=== PATIENT | female | born 1955 | race Caucasian/White ===

== ENCOUNTER 2017-08-07 02:46 | Emergency (ER) | payer OTHER, BC ==
[2017-08-07] MEDS ORDERED: SODIUM CHLORIDE 1,000 ML IV STA (03:59)
--- NOTE | 2017-08-07 03:59 | PDOC ---
History of Present Illness - General Chief Complaint: Back Pain Stated Complaint: LOW BACK PAIN.VOMITING Time Seen by Provider: 08/07/17 03:53 - History of Present Illness Initial Comments: 08/07/17 04:08 The patient is a 61 year old female with a history of diverticulosis who presents for evaluation of left flank pain. The patient reports a week and a half history of sharp left sided flank pain with radiation into her left abdomen. She reports worsening symptoms with her being unable to get comfortable tonight prompting her presentation to the ED for further evaluation. She also endorses some burning lower abdominal pain, but otherwise denies fevers, chills, SOB, chest pain, or changes with bowel movements. She notes an episode of vomiting two days ago as well as some blood in her urine. Past History - Past Medical History Allergies/Adverse Reactions: Allergies Allergy/AdvReac Type Severity Reaction Status Date / Time aspirin AdvReac Verified 10/07/15 17:02 Home Medications: Ambulatory Orders Zolpidem Tartrate [Zolpidem Tartrate ER] 12.5 mg PO HS 07/29/15 Pantoprazole Sodium [Protonix -] 40 mg PO DAILY #30 tablet.ec 10/08/15 Methocarbamol [Robaxin -] 500 mg PO BID #14 tablet 08/07/17 Anemia: No Asthma: No Cancer: No CVA: No COPD: Yes Diabetes: No GI Disorders: Yes (DIVERTICULOSIS, COLITIS) HTN: No Seizures: No Thyroid Disease: No - Surgical History Abdominal Surgery: Yes (tummy tuck) - Suicide/Smoking/Psychosocial Hx Smoking Status: Yes Smoking History: Current every day smoker Have you smoked in the past 12 months: No Number of Cigarettes Smoked Daily: 15 Hx Alcohol Use: No Drug/Substance Use Hx: No Substance Use Type: None Review of Systems - Review of Systems Comments:: 08/07/17 04:10 Constitutional: No fevers, chills, fatigue, malaise HEENT: No Rhinorrhea, nasal congestion, visual changes Cardiovascular: No chest pain, syncope, palpitations, lightheadedness Respiratory: No Cough, SOB, Hemoptysis, Gastrointestinal: Lower abdominal pain, nausea, vomiting. No Constipation, Diarrhea, Melena Genitourinary: Hematuria, Flank pain No Dysuria, Frequency, Urgency, Hesitancy, Musculoskeletal: No Myalgia, arthralgia Skin: No rashes, itching, bruising, pallor Neurologic: No Headache, Dizziness, Numbness, Weakness, or Tingling Psychiatric: No Hallucinations. No SI or HI *Physical Exam - Physical Exam Comments: 08/07/17 04:12 General Appearance: Nourished. In Mild Apparent Distress HEENT: EOMI, PATRIC. No Pharyngeal Erythema, Tonsillar Exudate, Tonsillar Erythema Neck: No Cervical Lymphadenopathy Respiratory/Chest: Lungs Clear, Normal Breath Sounds. No Crackles, Rales, Rhonchi, Wheezing Cardiovascular: Regular Rhythm, Regular Rate. No Murmur, Gallops, Rubs Gastrointestinal/Abdominal: Normal Bowel Sounds, Soft. Mild suprapubic tenderness to palpation on exam. No Guarding, Rebound, Musculoskeletal: No CVA Tenderness Extremity: Normal Capillary Refill Integumentary: Normal Color, Dry, Warm Neurologic: Fully Oriented, Alert, Normal Mood/Affect, Normal Response, ED Treatment Course - LABORATORY CBC & Chemistry Diagram: 08/07/17 04:23 08/07/17 04:23 Medical Decision Making - Medical Decision Making 08/07/17 04:13 The patient is a 61 year old female with a history of diverticulosis who presents for evaluation of left flank pain. Differential includes but is not limited to: UTI, Kidney Stone, Pyelonephritis, infectious, metabolic derangement. Given the patient's history and physical exam, we will obtain a cbc, cmp, lipase, ua, urine culture and renal CT to evaluate further for possible etiologies. We will treat in the meantime with iv fluids and morphine and continue to monitor and reassess while here in the ED. 08/07/17 06:38 CBC, cmp, lipase, ua are unremarkable. Renal CT is unremarkable as preliminarily read by our industrial automation engineer radiologist. The patient's symptoms are likely musculoskeletal in nature. We will treat the patient with robaxin and are comfortable discharging the patient home at this time. We discussed the results, plan, and strict return precautions with the patient who voiced understanding and is agreeable with the plan. *DC/Admit/Observation/Transfer Diagnosis at time of Disposition: Flank pain - Discharge Dispostion Disposition: HOME Condition at time of disposition: Stable Decision to Admit order: No - Prescriptions Prescriptions: Methocarbamol [Robaxin -] 500 mg PO BID #14 tablet - Referrals - Patient Instructions Printed Discharge Instructions: DI for Flank Pain Additional Instructions: Please return to the ER if you experience any concerning or worsening symptoms including worsening pain, fevers, or vomiting. Your lab results were normal here. Your CT scan was normal here in the ER. We have sent a prescription to your pharmacy for muscle relaxant that you should take as directed. It is important that you call your primary care provider within 2-3 days to discuss your ER visit and further management of your symptoms. - Post Discharge Activity
[2017-08-07] MEDS ORDERED: morphine CARPU-JECT 2 MG/1 ML DISP.SYRIN IVPUSH ONE ×2 (04:05→04:45)
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
[2017-08-07 04:12] VITALS: TEMP 97.7; BMI 32.8
[2017-08-07 04:33] LABS: BASO % 0.1 % (0-2.0); HEMOGLOBIN 14.5 GM/dL (10.7-15.3); MCH 31.4 pg (25.7-33.7); MCHC 33.8 g/dl (32.0-36.0); MEAN PLT VOLUME 8.1 fl (7.5-11.1); MONO % 5.6 % (3.8-10.2); NEUT % 55.3 % (42.8-82.8); PLATELET COUNT 248 K/MM3 (134-434); RBC 4.62 M/mm3 (3.60-5.2); RDW 14.3 % (11.6-15.6)
[2017-08-07 04:41] LABS: URINE APPEARANCE CLEAR; URINE BILIRUBIN NEGATIVE (<2.0 mg/dL); URINE COLOR YELLOW; URINE GLUCOSE (UA) NEGATIVE (NEGATIVE); URINE KETONE TRACE (NEGATIVE); URINE NITRITE NEGATIVE (NEGATIVE); URINE PROTEIN NEGATIVE (NEGATIVE); URINE UROBILINOGEN NEGATIVE mg/dL (0.2-1.0)
[2017-08-07] MEDS ORDERED: morphine SULFATE 4 MG/ML VIAL ONE (04:44)
[2017-08-07 05:00] LABS: ALBUMIN 3.5 g/dl (3.4-5.0); ANION GAP 7 (8-16); BLOOD UREA NITROGEN 23 mg/dL (7-18); CALCIUM 8.6 mg/dL (8.5-10.1); CHLORIDE 106 mmol/L (98-107); CO2 27 mmol/L (21-32); CREATININE 0.8 mg/dL (0.55-1.02); GLUCOSE,RANDOM 90 mg/dL (74-106); LIPASE 123 U/L (73-393); SGPT/ALT 28 U/L (12-78); SODIUM 140 mmol/L (136-145)
[2017-08-07 05:02] LABS: ALK PHOS 106 U/L (45-117); BILIRUBIN,TOTAL 0.4 mg/dL (0.2-1.0); TOT PROT 6.8 g/dl (6.4-8.2)
[2017-08-07 05:03] LABS: POTASSIUM 4.2 mmol/L (3.5-5.1); SGOT/AST 29 U/L (15-37)
[2017-08-07 05:29] LABS: URINE LEUK ESTERASE 1+ (NEGATIVE)
[2017-08-07] MEDS ORDERED: METHOCARBAMOL 500 MG TABLET PO ONE (06:21)
[2017-08-07 06:33] VITALS: BP 120/66; PULSE 70
[2017-08-07 06:33] LABS: EPI CELLS RARE /HPF (FEW); URINE MUCUS RARE
[2017-08-07] MEDS ORDERED: METHOCARBAMOL 500 MG TABLET ONE (06:48)
== END 2017-08-07 07:04 | disposition home or self-care (01) ==
LOC: JER 02:46
PROC: 3E0337Z Introduction of Electrolytic and Water Balance Substance into Peripheral Vein, Percutaneous Approach (ICD-10-PCS; principal; 2017-08-07)
PROC: 3E033NZ Introduction of Analgesics, Hypnotics, Sedatives into Peripheral Vein, Percutaneous Approach (ICD-10-PCS; 2017-08-07)
DX: R10.32 Left lower quadrant pain (principal); Z87.19 Personal history of other diseases of the digestive system; J44.9 Chronic obstructive pulmonary disease, unspecified; F17.210 Nicotine dependence, cigarettes, uncomplicated
CPT/HCPCS: 36415; 74176; 80053; 81003; 81015; 83690; 85025; 87086; 99282-25; J7030

== ENCOUNTER 2017-08-17 17:21 | Emergency (ER) | payer BC, OTHER ==
[2017-08-17 17:26] VITALS: BP 133/84; PULSE 89; TEMP 98.2; BMI 30.5
--- NOTE | 2017-08-17 17:34 | PDOC ---
Rapid Medical Evaluation Chief Complaint: Back Pain Time Seen by Provider: 08/17/17 17:23 Medical Evaluation: Allergies Allergy/AdvReac Type Severity Reaction Status Date / Time aspirin AdvReac Verified 10/07/15 17:02 Vital Signs Temp Pulse Resp BP Pulse Ox 98.2 F 89 18 133/84 97 08/17/17 17:23 08/17/17 17:23 08/17/17 17:23 08/17/17 17:23 08/17/17 17:23 08/17/17 17:33 I have performed a brief in-person evaluation of this patient. The patient presents with a chief complaint of: Severe LBP. Seen in ED 08/07 for same w/ neg labs and CT Pertinent physical exam findings:appears uncomfortable but stable I have ordered the following:nothing The patient will proceed to the ED for further evaluation. Discharge Disposition - Diagnosis Back pain Qualifiers: Back pain location: low back pain Chronicity: unspecified Back pain laterality : unspecified Sciatica presence: without sciatica Qualified Code(s): M54.5 - Low back pain - Discharge Dispostion Last Admission D/C Date: 10/08/15 - Referrals Referrals: Ramiro Garcia MD [Primary Care Provider] - - Patient Instructions - Post Discharge Activity
== END 2017-08-17 18:50 | disposition left against medical advice (07) ==
LOC: JERFT 17:21
DX: M54.5 Low back pain (principal)
CPT/HCPCS: 99281-25

== ENCOUNTER 2017-10-06 16:37 | Emergency (ER) | payer BC, OTHER ==
[2017-10-06 16:44] VITALS: BP 156/93; PULSE 82; TEMP 97.9
[2017-10-06] MEDS ORDERED: ONDANSETRON 4 MG/2 ML VIAL IVPUSH ONE (17:18)
[2017-10-06] MEDS ORDERED: FAMOTIDINE 20 MG/50 ML IVPB 20 MG/50 ML MG IVPB ONE ×2 (17:18→17:39)
[2017-10-06] MEDS ORDERED: MAG HYDROX/AL HYDROX/SIMETH 30 ML UNIT-DOSE CUP PO ONE (17:18)
[2017-10-06] MEDS ORDERED: SODIUM CHLORIDE 1,000 ML IV STA (17:19)
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
[2017-10-06] MEDS ORDERED: ONDANSETRON 4 MG/2 ML VIAL ONE (17:38)
[2017-10-06] MEDS ORDERED: MAG HYDROX/AL HYDROX/SIMETH 30 ML UNIT-DOSE CUP ONE (17:38)
[2017-10-06 17:54] LABS: BASO % 0.2 % (0-2.0); HEMATOCRIT 43.5 % (32.4-45.2); HEMOGLOBIN 14.6 GM/dL (10.7-15.3); LYMPH % 10.1 % (8-40); MCH 30.9 pg (25.7-33.7); MCHC 33.6 g/dl (32.0-36.0); MEAN CELL VOLUME 91.8 fl (80-96); MEAN PLT VOLUME 8.1 fl (7.5-11.1); MONO % 1.3 % (3.8-10.2); NEUT % 88.4 % (42.8-82.8); PLATELET COUNT 263 K/MM3 (134-434); RBC 4.74 M/mm3 (3.60-5.2); RDW 13.6 % (11.6-15.6)
[2017-10-06 18:37] LABS: ANION GAP 8 (8-16); BILIRUBIN,TOTAL 0.5 mg/dL (0.2-1.0); BLOOD UREA NITROGEN 18 mg/dL (7-18); CALCIUM 9.5 mg/dL (8.5-10.1); CHLORIDE 107 mmol/L (98-107); CO2 26 mmol/L (21-32); CREATININE 0.7 mg/dL (0.55-1.02); GLUCOSE,RANDOM 117 mg/dL (74-106); LIPASE 92 U/L (73-393); SGOT/AST 23 U/L (15-37); SGPT/ALT 39 U/L (12-78); SODIUM 141 mmol/L (136-145); TOT PROT 7.3 g/dl (6.4-8.2)
[2017-10-06 18:39] LABS: ALK PHOS 103 U/L (45-117)
[2017-10-06] MEDS ORDERED: morphine CARPU-JECT 4 MG/1 ML DISP.SYRIN IVPUSH ONE (18:42)
[2017-10-06] MEDS ORDERED: morphine SULFATE 4 MG/ML VIAL ONE (18:54)
[2017-10-06 19:05] LABS: URINE APPEARANCE CLOUDY; URINE BILIRUBIN NEGATIVE (<2.0 mg/dL); URINE COLOR YELLOW; URINE GLUCOSE (UA) NEGATIVE (NEGATIVE); URINE KETONE NEGATIVE (NEGATIVE); URINE LEUK ESTERASE 2+ (NEGATIVE); URINE NITRITE NEGATIVE (NEGATIVE); URINE PROTEIN 1+ (NEGATIVE); URINE UROBILINOGEN NEGATIVE mg/dL (0.2-1.0)
[2017-10-06 19:08] LABS: EPI CELLS MODERATE /HPF (FEW); URINE MUCUS RARE
[2017-10-06] MEDS ORDERED: NITROFURANTOIN MACROCRYSTAL 50 MG CAPSULE (FP) PO SCH (21:15)
--- NOTE | 2017-10-06 21:16 | PDOC ---
*Physical Exam - Vital Signs Last Vital Signs Temp Pulse Resp BP Pulse Ox 97.9 F 82 18 156/93 97 10/06/17 16:41 10/06/17 16:41 10/06/17 16:41 10/06/17 16:41 10/06/17 16:41 ED Treatment Course - LABORATORY CBC & Chemistry Diagram: 10/06/17 17:46 10/06/17 17:46 - ADDITIONAL ORDERS Additional order review: Laboratory Results 10/06/17 10/06/17 19:00 17:46 Sodium 141 Potassium 4.0 Chloride 107 Carbon Dioxide 26 Anion Gap 8 BUN 18 Creatinine 0.7 Creat Clearance w eGFR > 60 Random Glucose 117 H Calcium 9.5 Total Bilirubin 0.5 AST 23 ALT 39 Alkaline Phosphatase 103 Creatine Kinase 112 Troponin I < 0.02 Total Protein 7.3 Albumin 4.0 Lipase 92 Urine Color Yellow Urine Appearance Cloudy Urine pH 7.0 D Ur Specific [place] 1.024 Urine Protein 1+ H Urine Glucose (UA) Negative Urine Ketones Negative Urine Blood Negative Urine Nitrite Negative Urine Bilirubin Negative Urine Urobilinogen Negative Ur Leukocyte Esterase 2+ H Urine WBC (Auto) 19 Urine RBC (Auto) 29 Ur Epithelial Cells Moderate Urine Mucus Rare 10/06/17 17:46 RBC 4.74 MCV 91.8 MCHC 33.6 RDW 13.6 MPV 8.1 Neutrophils % 88.4 H D Lymphocytes % 10.1 D Monocytes % 1.3 L Eosinophils % 0.0 D Basophils % 0.2 - Medications Given in the ED: ED Medications Discontinued Medications Generic Name Dose Route Start Last Admin Trade Name Freq PRN Reason Stop Dose Admin Al Hydroxide/Mg Hydroxide 30 ml 10/06/17 17:18 10/06/17 17:35 Mylanta Oral Suspension - PO 10/06/17 17:19 30 ml ONCE ONE Administration Famotidine/Sodium Chloride 20 mg in 50 mls @ 100 mls/hr 10/06/17 17:18 17:35 Pepcid 20 Mg Premixed Ivpb - IVPB 10/06/17 17:47 100 mls/hr ONCE ONE Administration Sodium Chloride 1,000 mls @ 1,000 mls/hr 10/06/17 17:19 10/06/17 17:55 Normal Saline - IV 10/06/17 18:18 1,000 mls/hr ASDIR STA Administration Morphine Sulfate 4 mg 10/06/17 18:42 10/06/17 18:51 Morphine Injection - IVPUSH 10/06/17 18:43 4 mg ONCE ONE Administration Ondansetron HCl 4 mg 10/06/17 17:18 10/06/17 17:35 Zofran Injection IVPUSH 10/06/17 17:19 4 mg ONCE ONE Administration Medical Decision Making - Medical Decision Making 10/06/17 21:14 Patient endorsed to me to follow labs and reassess. 10/06/17 21:15 Labs noted significant for WBCs and the urine and RBCs Patient is improved and tolerating by mouth. Bedside US done, noted normal GB, no stones, no thickening. 10/06/17 22:00 I discussed the physical exam findings, ancillary test results and final diagnoses with the patient. I answered all of the patient's questions. The patient was satisfied with the care received and felt comfortable with the discharge plan and treatment plan. The Patient agrees to follow up with the primary care physician within 24-72 hours. *DC/Admit/Observation/Transfer Diagnosis at time of Disposition: Epigastric pain Nausea and vomiting Qualifiers: Vomiting type: unspecified Vomiting Intractability: unspecified Qualified Code( s): R11.2 - Nausea with vomiting, unspecified UTI (urinary tract infection) Qualifiers: Urinary tract infection type: site unspecified Hematuria presence: without hematuria Qualified Code(s): N39.0 - Urinary tract infection, site not specified - Discharge Dispostion Disposition: HOME Condition at time of disposition: Stable - Prescriptions Prescriptions: Nitrofurantoin Monohyd/M-Cryst [Macrobid -] 100 mg PO BID #14 capsule - Referrals Referrals: Ramiro Garcia MD [Primary Care Provider] - - Patient Instructions Printed Discharge Instructions: DI for Urinary Tract Infection (UTI), DI for Vomiting -- Adult Additional Instructions: Your Discharge Instructions: You must call primary care physician within 24 hours to arrange follow-up. Return to the Emergency Department with any new, persistent or worsening symptoms, for fever, chills, SOB, dizziness or any other concerning changes that may occur. Antibiotics as prescribed for the UTI. Follow up with urology. - Post Discharge Activity
[2017-10-06] MEDS ORDERED: NITROFURANTOIN MACROCRYSTAL 50 MG CAPSULE (FP) ONE (21:30)
== END 2017-10-06 22:24 | disposition home or self-care (01) ==
LOC: JER 16:37
PROC: 3E0337Z Introduction of Electrolytic and Water Balance Substance into Peripheral Vein, Percutaneous Approach (ICD-10-PCS; principal; 2017-10-06)
PROC: 3E033GC Introduction of Other Therapeutic Substance into Peripheral Vein, Percutaneous Approach (ICD-10-PCS; 2017-10-06)
PROC: 3E033NZ Introduction of Analgesics, Hypnotics, Sedatives into Peripheral Vein, Percutaneous Approach (ICD-10-PCS; 2017-10-06)
PROC: 3E033GC Introduction of Other Therapeutic Substance into Peripheral Vein, Percutaneous Approach (ICD-10-PCS; 2017-10-06)
DX: N39.0 Urinary tract infection, site not specified (principal); R10.13 Epigastric pain; R11.2 Nausea with vomiting, unspecified; J44.9 Chronic obstructive pulmonary disease, unspecified; F17.210 Nicotine dependence, cigarettes, uncomplicated; Z87.19 Personal history of other diseases of the digestive system
CPT/HCPCS: 36415; 80053; 81003; 81015; 82550; 83690; 84484; 85025; 99282-25; J7030

== ENCOUNTER 2017-10-08 01:30 | Emergency (ER) | payer BC, OTHER ==
[2017-10-08] MEDS ORDERED: SODIUM CHLORIDE 0.9% 500 ML INFUS.BAG IV ONE (01:57)
[2017-10-08] MEDS ORDERED: morphine CARPU-JECT 2 MG/1 ML DISP.SYRIN IVPUSH ONE ×2 (01:57→03:14)
[2017-10-08] MEDS ORDERED: ONDANSETRON 4 MG/2 ML VIAL IVPUSH ONE (01:57)
[2017-10-08] MEDS ORDERED: FAMOTIDINE 20 MG/50 ML IVPB 20 MG/50 ML MG IVPB ONE ×2 (01:59→03:05)
--- NOTE | 2017-10-08 02:04 | PDOC ---
History of Present Illness <Michelle Huntley - Last Filed: 10/08/17 04:19> - General History Source: Patient Exam Limitations: No Limitations - History of Present Illness Initial Comments: 10/08/17 01:59 Patient is a 61-year-old female with history of diverticulitis, colitis, gastritisH. pylori negative, status post surgery for food impaction in 2016 complaining of nausea, vomiting and abdominal pain. Patient was seen in the emergency room yesterday for the same symptoms was treated and felt better and was discharged home. Patient states that an hour after getting home her symptoms started again. She has been vomiting all night and all day. Pain initially started in the epigastrium now is more generalized and radiates to the back. Pain is 8/10, sharp, continuous. PMD: [facility] PMHX: as above PSOCHX: (+) cig, neg drug, etoh, ALL: ASA GENERAL/CONSTITUTIONAL: [No fever or chills. No weakness. No weight change.] HEAD, EYES, EARS, NOSE AND THROAT: [No change in vision. No ear pain or discharge. No sore throat.] CARDIOVASCULAR: [No chest pain or shortness of breath.] RESPIRATORY: [No cough, wheezing, or hemoptysis.] GASTROINTESTINAL: (+) nausea, vomiting, (-) diarrhea or constipation. No rectal bleeding.] GENITOURINARY: [No dysuria, frequency, or change in urination.] MUSCULOSKELETAL: [No joint or muscle swelling or pain. No neck or back pain.] SKIN AND BREASTS: [No rash or easy bruising.] NEUROLOGIC: [No headache, vertigo, loss of consciousness, or loss of sensation.] PSYCHIATRIC: [No depression or anxiety.] ENDOCRINE: [No increased thirst. No abnormal weight change.] HEMATOLOGIC/LYMPHATIC: [No anemia, easy bleeding, or history of blood clots.] ALLERGIC/IMMUNOLOGIC: [No hives or skin allergy. No latex allergy.] GENERAL: [The patient is awake, alert, and fully oriented, moderate distress.] HEAD: [Normal with no signs of trauma.] EYES: [Pupils equal, round and reactive to light, extraocular movements intact, sclera anicteric, conjunctiva clear.] ENT: [Ears normal, nares patent, oropharynx clear without exudates. Moist mucous membranes.] NECK: [Normal range of motion, supple without lymphadenopathy, JVD, or masses.] LUNGS: [Breath sounds equal, clear to auscultation bilaterally. No wheezes, and no crackles.] HEART: [Regular rate and rhythm, normal S1 and S2 without murmur, rub.] ABDOMEN: [Soft, (+) tenderness generalized, normoactive bowel sounds, (-) distention. No guarding, no rebound. No masses.] EXTREMITIES: [Normal range of motion, no edema. No clubbing or cyanosis. No cords, erythema, or tenderness.] NEUROLOGICAL: [Cranial nerves II through XII grossly intact. Normal speech, normal gait.] PSYCH: [Normal mood, normal affect.] SKIN: [Warm, Dry, normal turgor, no rashes or lesions noted.] <David Valladares - Last Filed: 10/08/17 05:36> - General Stated Complaint: ABDOMINAL PAIN/VOMITTING Time Seen by Provider: 10/08/17 01:54 Past History <Michelle Huntley - Last Filed: 10/08/17 04:19> - Past Medical History Anemia: No Asthma: No Cancer: No CVA: No COPD: Yes Diabetes: No GI Disorders: Yes (DIVERTICULOSIS, COLITIS) HTN: No Seizures: No Thyroid Disease: No - Surgical History Abdominal Surgery: Yes (tummy tuck) - Immunization History Immunization Up to Date: Yes - Suicide/Smoking/Psychosocial Hx Smoking Status: Yes Smoking History: Current every day smoker Have you smoked in the past 12 months: No Number of Cigarettes Smoked Daily: 15 Hx Alcohol Use: No Drug/Substance Use Hx: No Substance Use Type: None <David Valladares - Last Filed: 10/08/17 05:36> - Past Medical History Allergies/Adverse Reactions: Allergies Allergy/AdvReac Type Severity Reaction Status Date / Time aspirin AdvReac Verified 10/08/17 02:48 Home Medications: Ambulatory Orders Zolpidem Tartrate [Zolpidem Tartrate ER] 12.5 mg PO HS 07/29/15 Pantoprazole Sodium [Protonix -] 40 mg PO DAILY #30 tablet.ec 10/08/15 Methocarbamol [Robaxin -] 500 mg PO BID #14 tablet 08/07/17 Nitrofurantoin Monohyd/M-Cryst [Macrobid -] 100 mg PO BID #14 capsule 10/06/17 Dicyclomine HCl [Bentyl -] 20 mg PO Q6H #28 tablet 10/08/17 Famotidine [Pepcid] 20 mg PO DAILY #14 tablet 10/08/17 *Physical Exam - Vital Signs Last Vital Signs Temp Pulse Resp BP Pulse Ox 98.5 F 74 19 156/80 96 10/08/17 01:35 10/08/17 01:35 10/08/17 01:35 10/08/17 01:35 10/08/17 01:35 <Michelle Huntley - Last Filed: 10/08/17 04:19> ED Treatment Course - LABORATORY CBC & Chemistry Diagram: 10/08/17 02:00 10/08/17 02:00 - ADDITIONAL ORDERS Additional order review: Laboratory Results 10/08/17 10/08/17 02:00 02:00 Sodium 139 Potassium 4.3 Chloride 105 Carbon Dioxide 27 Anion Gap 7 L BUN 14 Creatinine 0.8 Creat Clearance w eGFR > 60 Random Glucose 108 H Lactic Acid 1.1 Calcium 8.7 Total Bilirubin 0.5 AST 39 H ALT 39 Alkaline Phosphatase 88 D Troponin I < 0.02 Total Protein 6.9 Albumin 3.6 Lipase 109 10/08/17 02:00 RBC 4.43 MCV 91.7 MCHC 34.5 RDW 14.1 MPV 8.0 Neutrophils % 78.3 Lymphocytes % 17.1 D Monocytes % 3.5 L D Eosinophils % 0.5 D Basophils % 0.6 - Medications Given in the ED: ED Medications Discontinued Medications Generic Name Dose Route Start Last Admin Trade Name Lilly PRN Reason Stop Dose Admin Hydromorphone HCl 0.5 mg 10/08/17 02:32 10/08/17 03:26 Dilaudid Injection - IVPUSH 10/08/17 02:33 Not Given ONCE ONE Famotidine/Sodium Chloride 20 mg in 50 mls @ 100 mls/hr 10/08/17 01:59 03:12 Pepcid 20 Mg Premixed Ivpb - IVPB 10/08/17 02:28 100 mls/hr ONCE ONE Administration Morphine Sulfate 2 mg 10/08/17 01:57 10/08/17 03:26 Morphine Injection - IVPUSH 10/08/17 01:58 Not Given ONCE ONE Morphine Sulfate 2 mg 10/08/17 03:14 10/08/17 03:26 Morphine Injection - IVPUSH 10/08/17 03:15 2 mg ONCE ONE Administration Ondansetron HCl 4 mg 10/08/17 01:57 10/08/17 03:12 Zofran Injection IVPUSH 10/08/17 01:58 4 mg ONCE ONE Administration Sodium Chloride 1,000 ml 10/08/17 01:57 10/08/17 03:12 Normal Saline - IV 10/08/17 01:58 1,000 ml ONCE ONE Administration <Michelle Huntley - Last Filed: 10/08/17 04:19> - LABORATORY CBC & Chemistry Diagram: 10/08/17 02:00 10/08/17 02:00 - RADIOLOGY Radiology Studies Ordered: Category Date Time Status ABDOMEN & PELVIS CT WITH CONTR [CT] Stat CT Scan 10/08/17 01:57 Ordered <David Valladares - Last Filed: 10/08/17 05:36> Medical Decision Making - Medical Decision Making 10/08/17 04:19 Patient Name: ANALY MANZO THIS IS A PRELIMINARY REPORT FROM [facility] DATE OF SERVICE: 2017-10-08 03:43:31 IMAGES: 511 EXAM: CT ABDOMEN AND PELVIS WITH CONTRAST No bowel obstruction, colitis, free fluid or free air. Diverticulosis colon without acute diverticulitis. Appendix not seen. Unremarkable pancreas, kidneys and gallbladder. 1.5 cm indeterminate left adrenal nodule. Multiple small hepatic cysts. Small umbilical hernia containing fat. Right breast implant. Lower left breast incompletely seen. Individualized dose optimization techniques were used for this CT. THIS DOCUMENT HAS BEEN ELECTRONICALLY SIGNED <Michelle Huntley - Last Filed: 10/08/17 04:19> - Medical Decision Making 10/08/17 01:59 Patient is a 61-year-old female with history of diverticulitis, colitis, gastritisH. pylori negative, status post surgery for food impaction in 2016 complaining of nausea, vomiting and abdominal pain. labs incl trop, ekg, morphine, ivf, zofran ctap reassess 10/08/17 03:27 labs with no acute finding EKG SR rate 69, NAD, Prolong QT 480, (-) ST-T wave changes 10/08/17 04:21 continues to be in pain d/c held given percocet x 2 I discussed the physical exam findings, ancillary test results and final diagnoses with the patient. I answered all of the patient's questions. The patient was satisfied with the care received and felt comfortable with the discharge plan and treatment plan. The Patient agrees to follow up with the primary care physician within 24-72 hours. <Butler-Juli,David - Last Filed: 10/08/17 05:36> *DC/Admit/Observation/Transfer <Michelle Huntley - Last Filed: 10/08/17 04:19> <ButlerWilliamJuliDavid renteria - Last Filed: 10/08/17 05:36> Diagnosis at time of Disposition: Abdominal pain Qualifiers: Abdominal location: unspecified location Qualified Code(s): R10.9 - Unspecified abdominal pain - Discharge Dispostion Disposition: HOME Condition at time of disposition: Stable - Prescriptions Prescriptions: Dicyclomine HCl [Bentyl -] 20 mg PO Q6H #28 tablet Famotidine [Pepcid] 20 mg PO DAILY #14 tablet - Referrals Referrals: Asher Lucio MD [Staff Physician] - - Patient Instructions Printed Discharge Instructions: DI for Abdominal Pain-Adult Additional Instructions: Your Discharge Instructions: You must call primary care physician within 24 hours to arrange follow-up. Return to the Emergency Department with any new, persistent or worsening symptoms, for fever, chills, SOB, dizziness or any other concerning changes that may occur.
[2017-10-08 02:22] LABS: BASO % 0.6 % (0-2.0); EOS % 0.5 % (0-4.5); HEMATOCRIT 40.6 % (32.4-45.2); LYMPH % 17.1 % (8-40); MCH 31.6 pg (25.7-33.7); MCHC 34.5 g/dl (32.0-36.0); MEAN CELL VOLUME 91.7 fl (80-96); MONO % 3.5 % (3.8-10.2); NEUT % 78.3 % (42.8-82.8); PLATELET COUNT 246 K/MM3 (134-434); RBC 4.43 M/mm3 (3.60-5.2); RDW 14.1 % (11.6-15.6); WHITE BLOOD COUNT 8.7 K/mm3 (4.0-10.0)
[2017-10-08] MEDS ORDERED: HYDROmorphone HCL CARPU-JECT 1 MG/1 ML DISP.SYRIN IVPUSH ONE (02:32)
[2017-10-08 02:48] VITALS: BP 156/80; PULSE 74; TEMP 98.5; BMI 28.3
[2017-10-08 03:02] LABS: ALBUMIN 3.6 g/dl (3.4-5.0); ANION GAP 7 (8-16); BILIRUBIN,TOTAL 0.5 mg/dL (0.2-1.0); BLOOD UREA NITROGEN 14 mg/dL (7-18); CALCIUM 8.7 mg/dL (8.5-10.1); CHLORIDE 105 mmol/L (98-107); CO2 27 mmol/L (21-32); CREATININE 0.8 mg/dL (0.55-1.02); GLUCOSE,RANDOM 108 mg/dL (74-106); LIPASE 109 U/L (73-393); SGPT/ALT 39 U/L (12-78); SODIUM 139 mmol/L (136-145); TOT PROT 6.9 g/dl (6.4-8.2)
[2017-10-08 03:04] LABS: ALK PHOS 88 U/L (45-117)
[2017-10-08 03:05] LABS: POTASSIUM 4.3 mmol/L (3.5-5.1)
[2017-10-08] MEDS ORDERED: ONDANSETRON 4 MG/2 ML VIAL ONE (03:05)
[2017-10-08] MEDS ORDERED: MORPHINE SULFATE 2 MG/ML VIAL ONE (03:05)
[2017-10-08 03:06] LABS: SGOT/AST 39 U/L (15-37)
[2017-10-08] MEDS ORDERED: LIDOCAINE VISCOUS 2% ORAL/TOP 20 ML UNIT-DOSE CUP MM ONE (04:30)
[2017-10-08] MEDS ORDERED: MAG HYDROX/AL HYDROX/SIMETH 30 ML UNIT-DOSE CUP PO ONE (04:30)
[2017-10-08] MEDS ORDERED: SUCRALFATE 1 GM/10 ML UNIT DOSE CUPS PO ONE (04:30)
[2017-10-08] MEDS ORDERED: LIDOCAINE VISCOUS 2% ORAL/TOP 20 ML UNIT-DOSE CUP ONE (05:13)
[2017-10-08] MEDS ORDERED: SUCRALFATE 1 GM TABLET (FP) ONE (05:13)
[2017-10-08] MEDS ORDERED: MAG HYDROX/AL HYDROX/SIMETH 30 ML UNIT-DOSE CUP ONE (05:14)
[2017-10-08] MEDS ORDERED: ACETAMINOPHEN 1000 MG/100 ML VIAL (NON FORMULARY) IVPB ONE (06:05)
[2017-10-08] MEDS ORDERED: ACETAMINOPHEN INJECTION 100 ML IVPB ONE (06:09)
--- NOTE | 2017-10-08 10:09 | EKG ---
Test Reason : Blood Pressure : / mmHG Vent. Rate : 069 BPM Atrial Rate : 069 BPM P-R Int : 176 ms QRS Dur : 088 ms QT Int : 448 ms P-R-T Axes : 071 071 072 degrees QTc Int : 480 ms NORMAL SINUS RHYTHM PROLONGED QT NONSPECIFIC T WAVE ABNORMALITY ABNORMAL ECG WHEN COMPARED WITH ECG OF 07-OCT-2015 21:13, NO SIGNIFICANT CHANGE WAS FOUND Confirmed by STANISLAV VELAZQUEZ MD ([id number]) on 10/08/2017 10:09:17 AM Referred By: Confirmed By:STANISLAV VELAZQUEZ MD
--- NOTE | 2017-10-08 14:34 | PDOC ---
Patient Follow-up (Call Back) - Post ED Follow - Up Condition at time of discharge: Stable Disposition at time of original discharge: HOME Reason for Call Back: Radiology Signs/Symptoms Improved: No - Disposition Additional Instructions/Notes: Dr. Javier believes there is colitis on CT scan. Called patient. Her states the pain is worse. Dr. Garcia started her on PO levaquin. I suggested he bring her back in for admission.
--- NOTE | 2017-10-09 14:29 | CONS ---
DATE OF CONSULTATION: 10/08/2017 INFECTIOUS DISEASE CONSULTATION REQUESTED BY: Neo Armendariz MD This is a 61-year-old woman with a past medical history of chronic constipation with diverticulitis, colitis and gastritis in the past who presented on October 06 to the emergency room with abdominal pain. She was discharged on Macrobid for a possible urinary tract infection. She came in again today with abdominal pain. She was called back later the same day with the finding of diverticulitis on the CT scan and she was admitted. She denies any fevers or chills. She says she vomited four days ago with dry heaves. No hematemesis. She has not vomited since. PAST MEDICAL HISTORY: Notable for diverticulitis and gastritis. She has a history of seasonal asthma and hyperlipidemia. In 2015, she had an esophageal meat impaction. In 2013, she had a colonoscopy. PAST SURGICAL HISTORY: Notable for arthroscopy, section, abdominoplasty, breast augmentation, cosmetic facial surgeries. She has had UPJ reflux surgery and foot and knee surgeries. FAMILY HISTORY: Notable for cardiac disease. SOCIAL HISTORY: She denies any substance use. She is an active, every-day smoker, smoking about 15 cigarettes a day. She lives with her spouse. She is a teacher. There is no history of any travel. ALLERGIES: ASPIRIN. CURRENT MEDICATIONS: As an outpatient, her medications include Ambien and Protonix 40 mg daily. There are several other medicines but she says the only ones she is taking are the Ambien and the Protonix. REVIEW OF SYSTEMS: She has chronic back pain. She has apparently been taking non-steroidals for that but she denies this to me. She denies any sick contacts. She has had no fevers or chills. She denies any weight loss. She has chronic constipation for which she takes medication. PHYSICAL EXAMINATION: VITALS: Temperature is 97.3, pulse is 62, blood pressure 130/76, respiratory rate 18, oxygen saturation 100% on room air. HEENT: Normocephalic. Eyes are anicteric. NECK: Supple. LUNGS: Clear to auscultation. HEART: Regular rate and rhythm. ABDOMEN: Soft. She has mid-epigastric discomfort to palpation. The abdomen is otherwise nontender. EXTREMITIES: No edema. LABS: Notable for a white count of 7.5, hemoglobin of 13.4, platelets of 206,000. BUN and creatinine are 10 and 0.8, respectively. C-reactive protein is less than 0.3. A urinalysis is unremarkable. CT scan findings are suggestive of mild colitis with acute diverticulitis in the mid-descending colon. IN SUMMARY: This is an 61-year-old woman with mid-epigastric pain and diverticulitis on CT scan. She has been started on ceftriaxone and Flagyl, which appears to be appropriate. She is scheduled for endoscopy for abdominal pain. Would suspect that once the abdominal EGD is completed, we will be able to transition her to oral treatment for her diverticulitis. We could probably treat her with Augmentin. Please call back if needed. LAURA LUCERO M.D. [id number]
== END 2017-10-08 06:28 | disposition home or self-care (01) ==
LOC: JER 01:30
PROC: 3E033GC Introduction of Other Therapeutic Substance into Peripheral Vein, Percutaneous Approach (ICD-10-PCS; principal; 2017-10-08)
PROC: 3E033NZ Introduction of Analgesics, Hypnotics, Sedatives into Peripheral Vein, Percutaneous Approach (ICD-10-PCS; 2017-10-08)
PROC: 3E033NZ Introduction of Analgesics, Hypnotics, Sedatives into Peripheral Vein, Percutaneous Approach (ICD-10-PCS; 2017-10-08)
PROC: 3E033GC Introduction of Other Therapeutic Substance into Peripheral Vein, Percutaneous Approach (ICD-10-PCS; 2017-10-08)
DX: R10.9 Unspecified abdominal pain (principal); F17.210 Nicotine dependence, cigarettes, uncomplicated; Z87.19 Personal history of other diseases of the digestive system; Z79.82 Long term (current) use of aspirin
CPT/HCPCS: 36415; 74177-TC; 80053; 82550; 83605; 83690; 84484; 85025; 93005; 93010; 99281-25; J0131

== ENCOUNTER 2023-12-12 04:32 | Day surgery (SDC) | payer OTHER, BC ==
[2023-12-06 13:55] VITALS: BMI 32.9
[2023-12-12 10:30] VITALS: TEMP 97.2
[2023-12-12 10:33] VITALS: RESP 16
[2023-12-12 10:35] VITALS: BP 157/71; PULSE 67
== END 2023-12-12 09:40 | disposition home or self-care (01) ==
LOC: JASU-ENDO 04:32
PROVIDERS: ATTEND Internal Medicine Gastroenterology
PROC: 0DB98ZX Excision of Duodenum, Via Natural or Artificial Opening Endoscopic, Diagnostic (ICD-10-PCS; 2023-12-12)
PROC: 0DB68ZX Excision of Stomach, Via Natural or Artificial Opening Endoscopic, Diagnostic (ICD-10-PCS; 2023-12-12)
PROC: 0DB28ZX Excision of Middle Esophagus, Via Natural or Artificial Opening Endoscopic, Diagnostic (ICD-10-PCS; 2023-12-12)
PROC: 0DB38ZX Excision of Lower Esophagus, Via Natural or Artificial Opening Endoscopic, Diagnostic (ICD-10-PCS; 2023-12-12)
PROC: 0DJD8ZZ Inspection of Lower Intestinal Tract, Via Natural or Artificial Opening Endoscopic (ICD-10-PCS; principal; 2023-12-12 08:00)
DX: Z12.11 Encounter for screening for malignant neoplasm of colon (principal); K64.8 Other hemorrhoids; K57.30 Diverticulosis of large intestine without perforation or abscess without bleeding; K22.2 Esophageal obstruction; K21.00 Gastro-esophageal reflux disease with esophagitis, without bleeding; K44.9 Diaphragmatic hernia without obstruction or gangrene
CPT/HCPCS: 43239; G0121; 88305-TC; 88342-TC